=== PATIENT | male | born 1960 | race Two or more races ===

== ENCOUNTER 2024-10-05 08:30 | Inpatient (IN) | payer OTHER ==
[~2024-10-05] VITALS: Ht 165.1 cm; Wt 77.1 kg
[2024-10-05 10:08] LABS: HEMATOCRIT 43.1 % (39.0-48.0); MEAN CELL VOLUME 88.1 fL (80.0-100.00); MEAN CORPUSCULAR HEMOGLOBIN 28.7 pg (27.00-32.0); MEAN CORPUSCULAR HGB CONC 32.6 g/dl (32.0-36.0); PLATELET COUNT 341 K/uL (150-450); RED BLOOD COUNT 4.89 M/uL (4.00-6.00); RED CELL DISTRIBUTION WIDTH 13.6 % (11.5-14.5)
[2024-10-05 10:10] LABS: URINE BILIRRUBIN Negative (NEGATIVE); URINE BLOOD Negative; URINE COLOR Yellow; URINE GLUCOSE Negative (NEGATIVE); URINE KETONE Negative (NEGATIVE); URINE LEUKOCYTE Negative; URINE NITRATE Negative; URINE PROTEIN Negative (NEGATIVE); URINE UROBILINOGEN 0.2 E.U./dl
[2024-10-05 10:11] LABS: URINE RBC 7.5 uL (0.0-20.8); URINE WBC 4.1 uL (0.0-23.2)
[2024-10-05 10:26] LABS: INR 0.97; PARTIAL THROMBOPLASTIN TIME 30.6 SECONDS (22.0-34.0); PROTHROMBIN TIME 10.6 SECONDS (9.0-11.5)
[2024-10-05] MEDS ORDERED: LAMICTAL200 MG PO (10:29)
[2024-10-05] MEDS ORDERED: TRILEPTAL600 MG PO (10:29)
[2024-10-05] MEDS ORDERED: ZOCOR20 MG PO (10:30)
[2024-10-05] MEDS ORDERED: ZOLOFT50 MG PO (10:30)
[2024-10-05] MEDS ORDERED: TAMS0.4C PO (10:30)
[2024-10-05] MEDS ORDERED: PEPCID40 MG PO (10:31)
[2024-10-05] MEDS ORDERED: PROTONIX40 MG PO (10:31)
[2024-10-05 10:32] LABS: URINE APPEARANCE CLEAR; URINE BACTERIA 1.2 uL (0.0-1933); URINE CAST 0.44 uL (0.0-1.40); URINE EPITHELIAL CELLS 0.9 uL (0.0-38.8)
[2024-10-05 10:35] VITALS: BP 136/77
[2024-10-05 10:39] LABS: CALCIUM 9.7 mg/dL (8.5-10.1); CREATININE SERUM 0.79 mg/dL (0.70-1.30); GFR 98.74; POTASSIUM 4.74 mEq/L (3.5-5.1)
[2024-10-05 12:32] LABS: RH POSITIVE
[2024-10-10] MEDS ORDERED: HEMOSTATIC MATRIX 1 KIT KIT TOP ONE (07:40)
[2024-10-10] MEDS ORDERED: CEFAZOLIN SODIUM 1,000 MG VIAL ONE (07:41)
[2024-10-10] MEDS ORDERED: ENOXAPARIN SODIUM 40 MG/0.4 ML SYRINGE SUBCUTANEO ONE (07:41)
[2024-10-10] MEDS ORDERED: SURGIFLO APPLICATOR 1 EACH APPL TOP ONE (11:00)
[2024-10-10] MEDS ORDERED: SUGAMMADEX SODIUM 200 MG/2 ML VIAL IV ONE (11:51)
[2024-10-10] MEDS ORDERED: OxyCODONE HCL/APAP UD (PERCOCET) PO PRN (12:15)
[2024-10-10] MEDS ORDERED: ONDANSETRON HCL 2 MG/ML VIAL IV PRN (12:15)
[2024-10-10] MEDS ORDERED: MORPHINE SULFATE 4 MG/ML CARTRIDGE IV PRN (12:15)
[2024-10-10] MEDS ORDERED: RINGERS SOLUTION,LACTATED 1,000 ML IV SCH (12:15)
[2024-10-10] MEDS ORDERED: MORPHINE SULFATE 4 MG/ML VIAL IV ONE ×3 (12:55→13:55)
[2024-10-10] MEDS ORDERED: ENALAPRILAT DIHYDRATE 1.25 MG/ML VIAL IV ONE ×2 (14:00→14:15)
[2024-10-10] MEDS ORDERED: GABAPENTIN 300 MG CAPSULE PO ONE (15:58)
[2024-10-10 16:00] VITALS: BP 168/80; O2SAT 97
[2024-10-10] MEDS ORDERED: POLYETHYLENE GLYCOL 3350 17 GM BLIST.PACK PO SCH (17:00)
[2024-10-10] MEDS ORDERED: GABAPENTIN 300 MG CAPSULE PO SCH (17:00)
[2024-10-10] MEDS ORDERED: CEFAZOLIN SODIUM 1,000 MG VIAL IV SCH (18:00)
[2024-10-10] MEDS ORDERED: FAMOTIDINE/PF 20 MG/2 ML VIAL IV SCH (21:00)
[2024-10-11] VITALS: BP 123/77; O2SAT 95
[2024-10-11 06:47] LABS: HEMATOCRIT 36.7 % (39.0-48.0); HEMOGLOBIN 12.4 g/dL (13-16.00); MEAN CELL VOLUME 87.6 fL (80.0-100.00); MEAN CORPUSCULAR HEMOGLOBIN 29.5 pg (27.00-32.0); MEAN CORPUSCULAR HGB CONC 33.6 g/dl (32.0-36.0); PLATELET COUNT 324 K/uL (150-450); RED BLOOD COUNT 4.19 M/uL (4.00-6.00); RED CELL DISTRIBUTION WIDTH 13.5 % (11.5-14.5)
[2024-10-11 07:15] LABS: ALBUMIN 2.9 gm/dL (3.4-5.0); CALCIUM 8.5 mg/dL (8.5-10.1); CREATININE SERUM 0.73 mg/dL (0.70-1.30); GFR 108.17; PHOSPHOROUS 3.5 mg/dL (2.5-4.9); POTASSIUM 4.2 mEq/L (3.5-5.1)
[2024-10-11] MEDS ORDERED: ENOXAPARIN SODIUM 40 MG/0.4 ML SYRINGE SUBCUTANEO SCH (09:00)
== END 2024-10-11 10:38 | disposition home or self-care (01) | DRG 708 ==
LOC: O/R 10-10 05:21 → SURH 10-10 07:00
PROVIDERS: ADMIT Urology; ATTEND Urology
PROC: 8E0W4CZ Robotic Assisted Procedure of Trunk Region, Percutaneous Endoscopic Approach (ICD-10-PCS; 2024-10-10)
PROC: 0VT04ZZ Resection of Prostate, Percutaneous Endoscopic Approach (ICD-10-PCS; principal; 2024-10-10 07:00)
DX: C61 Malignant neoplasm of prostate (principal)
CPT/HCPCS: 55866; S2900

== ENCOUNTER 2024-10-14 19:52 | Inpatient (IN) | payer OTHER ==
[~2024-10-14] VITALS: Ht 165.1 cm; Wt 77.1 kg
[~2024-10-14 19:52] MED LIST: LAMICTAL200 MG PO; PEPCID40 MG PO; PROTONIX40 MG PO; TAMS0.4C PO; TRILEPTAL600 MG PO; ZOCOR20 MG PO; ZOLOFT50 MG PO
--- NOTE | 2024-10-14 20:16 | NUR ---
SE RECIBE PACIENTE ALERTA Y ORIENTADA X3 REFIERE VENIR POR DOLOR ABDOMINAL QUE LO DESCRIBE LACHELLE QUEMANTE.
[2024-10-14] MEDS ORDERED: 0.9 % SODIUM CHLORIDE 1,000 ML IV STA (20:46)
[2024-10-14] MEDS ORDERED: PROMETHAZINE HCL 50 MG/ML AMPUL IM STA (20:47)
[2024-10-14] MEDS ORDERED: MEPERIDINE HCL/PF 50 MG/ML VIAL IM STA (20:47)
[2024-10-14] MEDS ORDERED: KETOROLAC TROMETHAMINE 30 MG VIAL IV STA (20:48)
[2024-10-14] MEDS ORDERED: PROMETHAZINE HCL 50 MG/ML AMPUL IM ONE (21:06)
[2024-10-14] MEDS ORDERED: KETOROLAC TROMETHAMINE 30 MG VIAL ONE (21:06)
--- NOTE | 2024-10-14 21:10 | NUR ---
SE EDUCA A PACIENTE ALERTA Y ORIENTADO Y A FAMILIAR SOBRE ORDEN MEDICAS, VERBALIZAN ENTENDER Y ACEPTAR. SE COLECTA MUESTRAS POR DARRYL COPE Y SE ADMINISTRAN MEDCIAMENTOS
[2024-10-14 21:15] LABS: HEMATOCRIT 35.6 % (39.0-48.0); HEMOGLOBIN 12.5 g/dL (13-16.00); MEAN CELL VOLUME 86.1 fL (80.0-100.00); MEAN CORPUSCULAR HEMOGLOBIN 30.1 pg (27.00-32.0); PLATELET COUNT 401 K/uL (150-450); RED BLOOD COUNT 4.14 M/uL (4.00-6.00); RED CELL DISTRIBUTION WIDTH 13.2 % (11.5-14.5)
[2024-10-14 21:40] LABS: ALBUMIN 3.7 gm/dL (3.4-5.0); BILIRUBIN TOTAL 0.71 mg/dL (0.3-1.2); CALCIUM 9.7 mg/dL (8.5-10.1); CREATININE SERUM 0.86 mg/dL (0.70-1.30); GFR 89.53; TOTAL PROTEIN 7.7 gm/dL (6.4-8.2)
[2024-10-14 22:17] LABS: URINE APPEARANCE Clear; URINE BILIRRUBIN Negative (NEGATIVE); URINE BLOOD Large; URINE COLOR Red; URINE GLUCOSE Negative (NEGATIVE); URINE KETONE Trace (NEGATIVE); URINE LEUKOCYTE Small; URINE NITRATE Positive; URINE UROBILINOGEN 0.2 E.U./dl
[2024-10-14 22:20] LABS: URINE CAST 2.06 uL (0.0-1.40); URINE EPITHELIAL CELLS 9.3 uL (0.0-38.8); URINE RBC 1695.4 uL (0.0-20.8); URINE WBC 41.1 uL (0.0-23.2)
[2024-10-14 22:37] LABS: URINE BACTERIA > 9821.5 uL (0.0-1933); URINE PROTEIN 100 (NEGATIVE)
[2024-10-15] MEDS ORDERED: CIPROFLOXACIN IN 5 % DEXTROSE 400 MG/200 ML PIGGYBAG IV STA (00:08)
[2024-10-15] MEDS ORDERED: CIPROFLOXACIN IN 5 % DEXTROSE 400 MG/200 ML PIGGYBAG IV ONE (00:12)
[2024-10-15] MEDS ORDERED: KETOROLAC TROMETHAMINE 30 MG VIAL IV STA (03:46)
[2024-10-15] MEDS ORDERED: KETOROLAC TROMETHAMINE 30 MG VIAL ONE ×2 (03:47→09:28)
[2024-10-15] MEDS ORDERED: CEFTRIAXONE SODIUM 1,000 MG VIAL IV STA (06:27)
[2024-10-15] MEDS ORDERED: CEFTRIAXONE SODIUM 1,000 MG VIAL ONE (06:42)
[2024-10-15] MEDS ORDERED: ACETAMINOPHEN 500 MG GEL..CAP PO ONE (07:25)
--- NOTE | 2024-10-15 07:45 | NUR ---
SE RECIBE PACIENTE ALERTA Y ORIENTADO EN TIEMPO, LUGAR Y PERSONA A QUIEN SE LE ORIENTA SOBRE CONTINUIDAD DE TRATAMIENTO MEDICO Y REFIERE ENTENDER. SE OBSERVA PACIENTE EN RIGOBERTO BARANDAS ELEVADASY EN [place] NIVEL MAS BAJO POR PRECAUCION A CAIDAS. PACIENTE PREVIAMENTE CANALIZADO RECIBIENDO IV FLUIDS DAMIAN ORDEN. PACIENTE CON SONDA URINARIA. SE MANTIENE BAJO OBSERVACION POR CAMBIOS EN CONDICION.
[2024-10-15] MEDS ORDERED: KETOROLAC TROMETHAMINE 30 MG VIAL IM ONE (09:30)
[2024-10-15] MEDS ORDERED: CEFTRIAXONE SODIUM 2,000 MG in 0.9 % SODIUM CHLORIDE 100 ML IV SCH (11:43)
[2024-10-15] MEDS ORDERED: SERTRALINE HCL 50 MG TABLET PO SCH (11:44)
[2024-10-15] MEDS ORDERED: 0.9 % SODIUM CHLORIDE 1,000 ML IV SCH (11:45)
[2024-10-15] MEDS ORDERED: ACETAMINOPHEN 500 MG GEL..CAP PO PRN (11:45)
[2024-10-15] MEDS ORDERED: MORPHINE SULFATE 2 MG/ML CARTRIDGE IV PRN (12:00)
[2024-10-15] MEDS ORDERED: LevETIRAcetam 500 MG TAB. PO SCH (12:07)
[2024-10-15] MEDS ORDERED: CEFTRIAXONE SODIUM 2,000 MG VIAL ONE (12:56)
[2024-10-15 13:24] VITALS: BP 107/63
[2024-10-15 13:44] LABS: INR 1.02; PARTIAL THROMBOPLASTIN TIME 28.4 SECONDS (22.0-34.0); PROTHROMBIN TIME 11.1 SECONDS (9.0-11.5)
[2024-10-15 16:03] VITALS: BP 117/80; O2SAT 97
[2024-10-15 18:02] VITALS: BP 125/64
[2024-10-16 02:24] VITALS: BP 129/63; O2SAT 99
[2024-10-16 06:18] LABS: HEMATOCRIT 33.3 % (39.0-48.0); HEMOGLOBIN 11.1 g/dL (13-16.00); MEAN CELL VOLUME 88.7 fL (80.0-100.00); MEAN CORPUSCULAR HEMOGLOBIN 29.6 pg (27.00-32.0); MEAN CORPUSCULAR HGB CONC 33.4 g/dl (32.0-36.0); PLATELET COUNT 384 K/uL (150-450); RED BLOOD COUNT 3.76 M/uL (4.00-6.00); RED CELL DISTRIBUTION WIDTH 13.6 % (11.5-14.5)
[2024-10-16 06:53] LABS: CALCIUM 8.7 mg/dL (8.5-10.1); CREATININE SERUM 0.8 mg/dL (0.70-1.30); GFR 97.32; POTASSIUM 4.51 mEq/L (3.5-5.1)
[2024-10-16 08:00] VITALS: BP 142/73
[2024-10-16] MEDS ORDERED: FAMOTIDINE/PF 20 MG in 0.9 % SODIUM CHLORIDE 100 ML IV SCH (09:00)
[2024-10-16] MEDS ORDERED: ENOXAPARIN SODIUM 40 MG/0.4 ML SYRINGE SUBCUTANEO SCH (09:00)
[2024-10-16 17:53] VITALS: BP 105/55
[2024-10-16] MEDS ORDERED: CIPROFLOXACIN IN 5 % DEXTROSE 400 MG/200 ML PIGGYBAG IV SCH (21:00)
[2024-10-16] MEDS ORDERED: SERTRALINE HCL 50 MG TABLET PO SCH (21:00)
[2024-10-17 01:00] VITALS: BP 111/60
[2024-10-17 08:29] VITALS: BP 132/77
[2024-10-17 09:53] LABS: HEMATOCRIT 35.8 % (39.0-48.0); HEMOGLOBIN 12.3 g/dL (13-16.00); MEAN CELL VOLUME 87.4 fL (80.0-100.00); MEAN CORPUSCULAR HGB CONC 34.3 g/dl (32.0-36.0); PLATELET COUNT 508 K/uL (150-450); RED CELL DISTRIBUTION WIDTH 13.6 % (11.5-14.5)
[2024-10-17 10:57] LABS: CALCIUM 9.4 mg/dL (8.5-10.1); CREATININE SERUM 0.92 mg/dL (0.70-1.30); GFR 82.83; POTASSIUM 4.36 mEq/L (3.5-5.1)
[2024-10-17 12:41] LABS: URINE APPEARANCE Clear; URINE BILIRRUBIN Negative (NEGATIVE); URINE BLOOD Large; URINE COLOR Orange; URINE GLUCOSE Negative (NEGATIVE); URINE KETONE Negative (NEGATIVE); URINE LEUKOCYTE Small; URINE NITRATE Negative
[2024-10-17 12:46] LABS: URINE BACTERIA 439.3 uL (0.0-1933); URINE CAST 1.61 uL (0.0-1.40); URINE EPITHELIAL CELLS 5.8 uL (0.0-38.8); URINE RBC 4250.9 uL (0.0-20.8); URINE WBC 121.5 uL (0.0-23.2)
[2024-10-17 12:57] LABS: URINE PROTEIN 100 (NEGATIVE)
[2024-10-17 17:34] VITALS: BP 152/82; O2SAT 98
[2024-10-17] MEDS ORDERED: MORPHINE SULFATE 2 MG/ML CARTRIDGE IV PRN (20:45)
[2024-10-17] MEDS ORDERED: CIPROFLOXACIN IN 5 % DEXTROSE 400 MG/200 ML PIGGYBAG IV SCH (21:00)
[2024-10-18 02:44] VITALS: BP 124/64
[2024-10-18 06:23] LABS: HEMATOCRIT 34.1 % (39.0-48.0); HEMOGLOBIN 11.4 g/dL (13-16.00); MEAN CELL VOLUME 88.5 fL (80.0-100.00); MEAN CORPUSCULAR HEMOGLOBIN 29.6 pg (27.00-32.0); MEAN CORPUSCULAR HGB CONC 33.4 g/dl (32.0-36.0); PLATELET COUNT 470 K/uL (150-450); RED BLOOD COUNT 3.86 M/uL (4.00-6.00); RED CELL DISTRIBUTION WIDTH 13.2 % (11.5-14.5)
[2024-10-18 06:40] LABS: CALCIUM 8.9 mg/dL (8.5-10.1); CREATININE SERUM 0.78 mg/dL (0.70-1.30); GFR 100.21
[2024-10-18 06:43] LABS: POTASSIUM 5.16 mEq/L (3.5-5.1)
[2024-10-18 09:12] VITALS: BP 128/79; O2SAT 97
[2024-10-18 17:43] VITALS: BP 151/85
[2024-10-19 02:48] VITALS: BP 153/75
[2024-10-19 09:49] VITALS: BP 131/81; O2SAT 98
== END 2024-10-19 12:21 | disposition home or self-care (01) | DRG 948 ==
LOC: ER 19:54 → MEDJ 10-15 12:03 → SEC-K 10-15 12:03 → MEDI 10-15 12:11 → MEDJ 10-15 12:15
PROVIDERS: Internal Medicine Infectious Disease; Student in an Organized Health Care Education/Training Program; ADMIT General Practice; ATTEND General Practice
PROC: BW21YZZ Computerized Tomography (CT Scan) of Abdomen and Pelvis using Other Contrast (ICD-10-PCS; principal; 2024-10-14)
PROC: 8E0ZXY6 Isolation (ICD-10-PCS; 2024-10-17)
PROC: BW21ZZZ Computerized Tomography (CT Scan) of Abdomen and Pelvis (ICD-10-PCS; 2024-10-18)
DX: G89.18 Other acute postprocedural pain (principal); N39.0 Urinary tract infection, site not specified; F45.42 Pain disorder with related psychological factors; B96.5 Pseudomonas (aeruginosa) (mallei) (pseudomallei) as the cause of diseases classified elsewhere; B96.89 Other specified bacterial agents as the cause of diseases classified elsewhere; C61 Malignant neoplasm of prostate; Z90.79 Acquired absence of other genital organ(s)

== ENCOUNTER 2024-10-29 09:18 | Outpatient (CLI) | payer OTHER | END 2024-10-29 09:32 | disposition home or self-care (01) | LOC: TOM 09:18 | PROVIDERS: ATTEND Urology | DX: C61 Malignant neoplasm of prostate (principal) ==

== ENCOUNTER 2024-12-03 09:47 | Outpatient (CLI) | payer OTHER | END 2024-12-03 09:51 | disposition home or self-care (01) | LOC: TOM 09:47 | PROVIDERS: ATTEND Urology | DX: C61 Malignant neoplasm of prostate (principal) | CPT/HCPCS: 72194; Q9965 ==